=== PATIENT | male | born 1965 | race Caucasian/White ===

== ENCOUNTER → 2017-01-21 | Emergency (ER) | payer MEDICAID ==
[~2017-01-21] VITALS: Ht 182.9 cm; Wt 80.3 kg
[~2017-01-21] MED LIST: ACETAMINOPHEN 325 MG TABLET PO ONE; ACETAMINOPHEN ES 500 MG TABLET ONE
[2017-01-21 15:02] VITALS: BP 152/100
== END | disposition home or self-care (01) ==
LOC: ER 15:00
DX: S70.01XA Contusion of right hip, initial encounter (principal); E78.5 Hyperlipidemia, unspecified; I10 Essential (primary) hypertension; W18.39XA Other fall on same level, initial encounter; Y93.89 Activity, other specified; Y92.89 Other specified places as the place of occurrence of the external cause; Y99.9 Unspecified external cause status
CPT/HCPCS: 73510-TC; 73550-TC; A4606; Z7610